=== PATIENT | male | born 1995 | race Caucasian/White ===

== ENCOUNTER 2017-11-11 13:18 | Emergency (ER) | payer BC ==
[2017-11-11] MEDS: IBUPROFEN 600 MG TAB PO (15:03)
== END 2017-11-11 16:58 | disposition home or self-care (01) ==
LOC: FTE 13:18
DX: S99.911A Unspecified injury of right ankle, initial encounter (principal); X58.XXXA Exposure to other specified factors, initial encounter; Y92.310 Basketball court as the place of occurrence of the external cause
CPT/HCPCS: 29515; 73610; 99283-25